=== PATIENT | male | born 1960 | race Caucasian/White ===

== ENCOUNTER 2020-10-18 11:02 | Emergency (ER) | payer SELFPAY ==
[~2020-10-18] VITALS: Ht 180.3 cm; Wt 96.2 kg
[2020-10-18 11:12] VITALS: BP 130/100
[2020-10-18] MEDS ORDERED: NACL 0.9% 1,000 ML IV ONE (11:50)
[2020-10-18 12:09] LABS: BASOPHILS # (AUTO) 0.1 K/uL (0.00-0.22); BASOPHILS % (AUTO) 0.7 % (0.0-2.0); EOSINOPHILS # (AUTO) 0.2 K/uL (0-0.4); HEMATOCRIT 48.8 % (36-52); HEMOGLOBIN 16.3 g/dL (12.0-18.0); LYMPHOCYTES # (AUTO) 2.2 K/uL (2.0-11.5); LYMPHOCYTES % (AUTO) 26.1 % (20.5-51.1); MEAN CORPUSCULAR HEMOGLOBIN 30 pg (27-31); MEAN CORPUSCULAR HGB CONC 34 g/dL (33-37); MEAN CORPUSCULAR VOLUME 89.9 fL (80-94); MONOCYTES # (AUTO) 0.9 K/uL (0.8-1.0); MONOCYTES % (AUTO) 10.7 % (1.7-9.3); NEUTROPHILS % (AUTO) 60.5 % (42.2-75.2); PLATELET COUNT (AUTO) 157 K/uL (140-450); RED BLOOD CELL COUNT(AUTO) 5.43 MIL/uL (4.20-6.10); RED CELL DISTRIBUTION WIDTH 13.4 % (11.6-13.7); WHITE BLOOD COUNT (AUTO) 8.3 K/uL (4.8-10.8)
[2020-10-18 12:50] LABS: ALBUMIN 3.8 g/dL (3.4-5.0); ANION GAP 11.7 (8-16); CARBON DIOXIDE 29.1 mmol/L (21-32); CREATININE 1.3 mg/dL (0.6-1.3); POTASSIUM 3.8 mmol/L (3.5-5.1); TOTAL BILIRUBIN 0.8 mg/dL (0.0-1.0)
[2020-10-18] MEDS ORDERED: LIDOCAINE 2% 1000 MG/50 ML VIAL INJ ONE (12:55)
[2020-10-18 13:24] LABS: PROTHROMBIN TIME 9.9 secs (10.8-13.4)
[2020-10-18 13:37] VITALS: BP 130/100
[2020-10-20 06:07] LABS: HEPATITIS A ANTIBODY IGM Negative (Negative); HEPATITIS B CORE AB TOTAL Negative (Negative); HEPATITIS B SURFACE ANTIBODY Non Reactive (.); HEPATITIS B SURFACE ANTIGEN Negative (Negative)
== END 2020-10-18 13:37 | disposition designated cancer center or children's hospital (05) ==
LOC: MED 11:02
DX: S06.5X0A Traumatic subdural hemorrhage without loss of consciousness, initial encounter (principal); S01.01XA Laceration without foreign body of scalp, initial encounter; R55 Syncope and collapse; E11.9 Type 2 diabetes mellitus without complications; I10 Essential (primary) hypertension; E78.00 Pure hypercholesterolemia, unspecified; W19.XXXA Unspecified fall, initial encounter; Y93.89 Activity, other specified; Y92.89 Other specified places as the place of occurrence of the external cause; Y99.8 Other external cause status
CPT/HCPCS: 12002; 36415; 70450; 80053; 84484; 85025; 85610; 85730; 86702; 86703; 86704; 86706; 86708; 86709; 86803; 87340; 90471; 90715; 93005; 96360; 99291; J2001; J7030

== ENCOUNTER 2020-11-12 15:46 | Emergency (ER) | payer OTHER ==
[~2020-11-12] VITALS: Ht 175.3 cm; Wt 66.2 kg
--- NOTE | 2020-11-12 16:06 | NUR ---
PT TAKEN TO CHAIR Lexy.
[2020-11-12 16:08] VITALS: BP 135/80
[2020-11-12] MEDS ORDERED: BACITRACIN OINT 500 UNITS/GM PKT TP ONE (16:10)
--- NOTE | 2020-11-12 16:12 | NUR ---
irrigated pt top of head and applied bacitracin without any issues
--- NOTE | 2020-11-12 16:13 | NUR ---
60 Y/O MALE HERE FOR SUTURE REMOVAL. PT WAS SEEN 10/18/20 AND TRANSFERED TO [facility]. TODAY SUTURES ARE INTACT TO THE BACK OF SCALP, SOME SKIN GROWTH OVER. PT DENIES PAIN, DENIES FEVER/CHILLS, DENIES N/V. PMH: HTN, HLD NKA
[2020-11-12 16:32] VITALS: BP 135/80
--- NOTE | 2020-11-12 16:33 | NUR ---
Patient discharged with v/s stable. Written and verbal after care instructions given and explained. Patient verbalized understanding. Ambulatory with steady gait. All questions addressed prior to discharge. Advised to follow up with PMD.
== END 2020-11-12 18:00 | disposition home or self-care (01) ==
LOC: MED 17:41
DX: S01.01XD Laceration without foreign body of scalp, subsequent encounter (principal); Z48.00 Encounter for change or removal of nonsurgical wound dressing; X58.XXXD Exposure to other specified factors, subsequent encounter
CPT/HCPCS: 99281